=== PATIENT | female | born 1985 | race Caucasian/White ===

== ENCOUNTER 2018-12-16 03:47 | Emergency (ER) | payer OTHER ==
[~2018-12-16] VITALS: Ht 160 cm; Wt 68.0 kg
[2018-12-16] MEDS ORDERED: HYDROCODON-ACE1 EAC7 PO (04:26)
[2018-12-16] MEDS ORDERED: CORTISPORIN OTI10 M2 OTIC (04:26)
[2018-12-16 04:47] VITALS: BP 170/78
== END 2018-12-16 04:51 | disposition home or self-care (01) ==
LOC: M.ERS 03:47
DX: T16.2XXA Foreign body in left ear, initial encounter (principal); Z88.5 Allergy status to narcotic agent; X58.XXXA Exposure to other specified factors, initial encounter

== ENCOUNTER 2019-12-07 11:53 | Emergency (ER) | payer OTHER ==
[~2019-12-07] VITALS: Ht 160 cm; Wt 79.8 kg
[~2019-12-07 11:53] MED LIST: CORTISPORIN OTI10 M2 OTIC; HYDROCODON-ACE1 EAC7 PO
[2019-12-07] MEDS ORDERED: ZPAK PO (12:35)
[2019-12-07] MEDS ORDERED: PROVENTIL HFA6.7 G1 INH (12:35)
[2019-12-07 13:14] VITALS: BP 126/77
== END 2019-12-07 13:15 | disposition home or self-care (01) ==
LOC: M.ERS 11:53
DX: J32.9 Chronic sinusitis, unspecified (principal); J22 Unspecified acute lower respiratory infection

== ENCOUNTER 2020-07-30 11:58 | Emergency (ER) | payer OTHER ==
[~2020-07-30] VITALS: Ht 160 cm; Wt 67.1 kg
[~2020-07-30 11:58] MED LIST changes: +PROVENTIL HFA6.7 G1 INH; +ZPAK PO
[2020-07-30] MEDS ORDERED: APAP W/CODEINE1 TA2 PO (13:39)
[2020-07-30] MEDS ORDERED: IBUPROFEN 600600 M1 PO (13:39)
[2020-07-30 13:52] VITALS: BP 104/70
== END 2020-07-30 13:52 | disposition home or self-care (01) ==
LOC: M.ERS 11:58
DX: S93.492A Sprain of other ligament of left ankle, initial encounter (principal); Z98.890 Other specified postprocedural states; Z98.51 Tubal ligation status; X50.1XXA Overexertion from prolonged static or awkward postures, initial encounter; Y93.89 Activity, other specified; Y92.89 Other specified places as the place of occurrence of the external cause; Y99.9 Unspecified external cause status